=== PATIENT | female | born 1975 | race Caucasian/White ===

== ENCOUNTER → 2019-08-15 | Outpatient (CLI) | payer OTHER | LOC: MC.RAD 16:19 | DX: Z12.31 Encounter for screening mammogram for malignant neoplasm of breast (principal) ==

== ENCOUNTER → 2020-02-04 | Emergency (ER) | payer OTHER ==
[~2020-02-04] VITALS: Ht 172.7 cm; Wt 113.6 kg
[2020-02-04 18:33] VITALS: BP 138/85; PULSE 77; TEMP 98.2
== END ==
LOC: COL.ER 18:11
DX: S83.91XA Sprain of unspecified site of right knee, initial encounter (principal); Z90.710 Acquired absence of both cervix and uterus; X50.9XXA Other and unspecified overexertion or strenuous movements or postures, initial encounter
CPT/HCPCS: L1846

== ENCOUNTER → 2020-02-16 | Outpatient (CLI) | payer OTHER | LOC: COL.RAD 08:13 | DX: M17.0 Bilateral primary osteoarthritis of knee (principal) | CPT/HCPCS: A9503 ==

== ENCOUNTER → 2021-06-10 | Outpatient (CLI) | payer BC | LOC: MC.RAD 08:10 | DX: Z12.31 Encounter for screening mammogram for malignant neoplasm of breast (principal) ==